=== PATIENT | male | born 1965 | race Caucasian/White ===

== ENCOUNTER → 2016-10-14 | Outpatient (CLI) | payer OTHER ==
[~2016-10-14] VITALS: Ht 180.3 cm; Wt 104.3 kg
[~2016-10-14] MED LIST: ASCORBIC ACID500 M3 PO; ATORVASTATIN CA20 MG PO; DIOVAN HCT 31 TABLET PO; FISH OIL + VIT1 EACH PO; GEMFIBROZIL600 MG PO; METFORMIN HCL850 MG PO; MIRALAX255 GM PO; PRAVASTATIN SOD20 MG PO; VALSARTAN-HCTZ1 EAC1 PO
[2016-10-14 07:51] LABS: ANION GAP 8 MEQ/L (2-14); CHLORIDE 103 MEQ/L (99-109); GFR ESTIMATE (CALCULATED) > 59 mL/min/; GLUCOSE 122 mg/dL (70-99); POTASSIUM 3.9 MEQ/L (3.7-5.4); SAMPLE HEMOLYSIS CHECK 0; SAMPLE ICTERIC CHECK 0; SAMPLE LIPEMIA CHECK 0; SODIUM 141 MEQ/L (136-147); UREA NITROGEN (BUN) 15 mg/dL (9-23)
== END | disposition home or self-care (01) ==
LOC: AMB 06:24
PROVIDERS: Anesthesiology
DX: Z12.11 Encounter for screening for malignant neoplasm of colon (principal); D12.5 Benign neoplasm of sigmoid colon; K63.5 Polyp of colon; K64.8 Other hemorrhoids; K57.30 Diverticulosis of large intestine without perforation or abscess without bleeding; K59.09 Other constipation; D69.3 Immune thrombocytopenic purpura; E11.9 Type 2 diabetes mellitus without complications; E78.5 Hyperlipidemia, unspecified; I10 Essential (primary) hypertension; E66.9 Obesity, unspecified; Z68.33 Body mass index [BMI] 33.0-33.9, adult; G47.30 Sleep apnea, unspecified; F79 Unspecified intellectual disabilities; Z83.3 Family history of diabetes mellitus; Z82.3 Family history of stroke; Z79.84 Long term (current) use of oral hypoglycemic drugs
CPT/HCPCS: 80048; 88305; J2250; J3010

== ENCOUNTER 2017-10-12 09:02 | Day surgery (SDC) | payer OTHER ==
[~2017-10-12] VITALS: Ht 177.8 cm; Wt 105.2 kg
[~2017-10-12 09:02] MED LIST changes: +GLUCOTROL5 MG PO
[2017-10-12 10:45] VITALS: BP 158/89
[2017-10-12 16:35] VITALS: BP 139/75
[2017-10-12 17:30] VITALS: BP 126/67
== END 2017-10-12 17:40 | disposition home or self-care (01) ==
LOC: SDC 09:02
PROVIDERS: Ophthalmology
DX: H33.22 Serous retinal detachment, left eye (principal); E11.319 Type 2 diabetes mellitus with unspecified diabetic retinopathy without macular edema; I10 Essential (primary) hypertension; Z79.84 Long term (current) use of oral hypoglycemic drugs; D69.3 Immune thrombocytopenic purpura; E78.5 Hyperlipidemia, unspecified; G47.30 Sleep apnea, unspecified; E66.9 Obesity, unspecified; Z68.35 Body mass index [BMI] 35.0-35.9, adult
CPT/HCPCS: 80048; 82948; J0690; J0713; J1100; J2250; J2405; J3300